=== PATIENT | female | born 1975 | race Caucasian/White ===

== ENCOUNTER 2023-09-19 14:18 | Emergency (ER) | payer MEDICAID ==
[~2023-09-19] VITALS: Ht 167.6 cm; Wt 69.0 kg
[2023-09-19 14:28] VITALS: BP 122/81; PULSE 98; RESP 20; TEMP 98.2; O2SAT 99
[2023-09-19] MEDS ORDERED: IBUP-2029 MT (16:21)
== END 2023-09-19 17:54 | disposition home or self-care (01) ==
LOC: ER 14:18
DX: S00.83XA Contusion of other part of head, initial encounter (principal); S09.90XA Unspecified injury of head, initial encounter; V49.9XXA Car occupant (driver) (passenger) injured in unspecified traffic accident, initial encounter; Y93.89 Activity, other specified; Y92.89 Other specified places as the place of occurrence of the external cause; Y99.8 Other external cause status
CPT/HCPCS: 81025; 99284